=== PATIENT | male | born 1995 | race Caucasian/White ===

== ENCOUNTER 2018-01-06 11:47 | Emergency (ER) | payer OTHER ==
[~2018-01-06] VITALS: Ht 182.9 cm; Wt 78.0 kg
== END 2018-01-06 12:19 | disposition home or self-care (01) ==
LOC: ER 11:51
DX: L25.9 Unspecified contact dermatitis, unspecified cause (principal); Z88.1 Allergy status to other antibiotic agents
CPT/HCPCS: A4663

== ENCOUNTER 2018-01-15 15:48 | Emergency (ER) | payer OTHER ==
[~2018-01-15] VITALS: Ht 182.9 cm; Wt 77.1 kg
[2018-01-15] MEDS ORDERED: CEPH500C2 PO (16:00)
--- NOTE | 2018-01-15 16:25 | NUR ---
Patient discharged to home in stable conditon & steady gait. Written and verbal after care instructions given to patient. Patient verbalizes understanding of instructions.
== END 2018-01-15 16:25 | disposition home or self-care (01) ==
LOC: ER 15:49
DX: M54.5 Low back pain (principal); J45.909 Unspecified asthma, uncomplicated; Z88.1 Allergy status to other antibiotic agents
CPT/HCPCS: A4663

== ENCOUNTER 2019-01-26 21:01 | Emergency (ER) | payer OTHER ==
[~2019-01-26] VITALS: Ht 182.9 cm; Wt 77.1 kg
[~2019-01-26 21:01] MED LIST: CEPH500C2 PO
--- NOTE | 2019-01-26 21:40 | NUR ---
DR. MAYO AT BEDSIDE FOR MSE.
[2019-01-26] MEDS: HYDROCODONE/APAP 5-325MG TABLET PO ONE (21:46)
[2019-01-26] MEDS: DOCUSATE SODIUM 100 MG CAPSULE PO ONE (21:46)
--- NOTE | 2019-01-26 21:46 | NUR ---
Patient discharged to home in stable conditon. Written and verbal after care instructions given. Patient verbalizes understanding of instructions. PATIENT LEFT WITH STABLE GAIT.
[2019-01-26 21:47] VITALS: BP 141/73
[2019-01-26] MEDS ORDERED: DOCUSATE SODIUM 100 MG CAPSULE PO ONE (21:48)
[2019-01-26] MEDS ORDERED: HYDROCODONE/APAP 5-325MG TABLET ONE (21:48)
== END 2019-01-26 21:51 | disposition home or self-care (01) ==
LOC: ER 21:03
DX: K64.4 Residual hemorrhoidal skin tags (principal); J45.909 Unspecified asthma, uncomplicated; Z88.1 Allergy status to other antibiotic agents; Z79.899 Other long term (current) drug therapy
CPT/HCPCS: A4663

== ENCOUNTER 2020-01-20 21:12 | Emergency (ER) | payer OTHER ==
[~2020-01-20] VITALS: Ht 182.9 cm; Wt 77.1 kg
--- NOTE | 2020-01-20 21:20 | NUR ---
ADMITTED TO ER [facility] AMBULATORY C/O ABSCESS ON LEFT UNDER ARM SINCE LAST MONTH. DR MAYO WILL SEE & EVALUATED PT.
[2020-01-20] MEDS ORDERED: IBUP-23 PO (21:24)
[2020-01-20] MEDS ORDERED: EMTR1TAB6 PO (21:24)
[2020-01-20] MEDS ORDERED: ONDANSETRON ODT 4 MG TAB.RAPDIS SL ONE (21:45)
[2020-01-20] MEDS ORDERED: SODIUM BICARBONATE 4.2 % (NEUT) 5 ML VIAL TP ONE (21:45)
[2020-01-20] MEDS ORDERED: HYDROCODONE/APAP 10-325 MG TABLET PO ONE (21:45)
[2020-01-20] MEDS ORDERED: SULFAMETH/TRIMETH 800/160 MG TABLET PO ONE (21:45)
[2020-01-20] MEDS ORDERED: LIDOCAINE 1%-EPI 1:100,000 20 ML VIAL ONE ×2 (21:45→22:48)
[2020-01-20] MEDS: CEFTRIAXONE 1 G VIAL IM ONE ×2 (21:52→22:55)
[2020-01-20] MEDS: LIDOCAINE 1%-EPI 1:100,000 20 ML VIAL IJ ONE ×2 (21:52→22:55)
--- NOTE | 2020-01-20 21:55 | NUR ---
INCISION & DRAINAGE DONE @ BEDSIDE BY DR MAYO.
[2020-01-20] MEDS ORDERED: CEFTRIAXONE 1 G VIAL ONE ×2 (22:35→22:46)
[2020-01-20] MEDS ORDERED: SULFAMETH/TRIMETH 800/160 MG TABLET ONE (22:36)
[2020-01-20] MEDS ORDERED: ONDANSETRON ODT 4 MG TAB.RAPDIS ONE (22:37)
[2020-01-20] MEDS ORDERED: HYDROCODONE/APAP 10-325 MG TABLET ONE (22:37)
--- NOTE | 2020-01-20 23:55 | NUR ---
Patient discharged to home in stable condition under the care his mother. Written and verbal after care instructions given. Patient verbalizes understanding of instructions. Stressed follow up or return to ER for worsening s/s.
[2020-01-21 00:39] VITALS: BP 128/85
== END 2020-01-20 23:55 | disposition home or self-care (01) ==
LOC: ER 21:14
DX: L02.412 Cutaneous abscess of left axilla (principal); J45.909 Unspecified asthma, uncomplicated; L03.112 Cellulitis of left axilla
CPT/HCPCS: 10060; 96372; 99284; J0696; J3490 ×2; A4663; Q0162

== ENCOUNTER 2020-01-22 21:44 | Emergency (ER) | payer OTHER ==
[~2020-01-22] VITALS: Ht 182.9 cm; Wt 77.1 kg
[~2020-01-22 21:44] MED LIST changes: +EMTR1TAB6 PO; +IBUP-23 PO
--- NOTE | 2020-01-22 22:02 | NUR ---
at bedside for assessment
--- NOTE | 2020-01-22 22:28 | NUR ---
Left armit packing removed by stephanie LAIRD repfelix and dressed with four by fours and hospital tape, patient tolerated procedure well
--- NOTE | 2020-01-22 22:32 | NUR ---
Patient discharged to home in stable condition. Patient able to ambulate in steady manner, took all belongings, no signs of acute distress, instructed to follow up with PCP. Written and verbal after care instructions given. Patient verbalizes understanding of instructions. Stressed follow up or return to ER for worsening s/s.
[2020-01-22 22:36] VITALS: BP 133/61
== END 2020-01-22 22:35 | disposition home or self-care (01) ==
LOC: ER 21:47
DX: L02.412 Cutaneous abscess of left axilla (principal); J45.909 Unspecified asthma, uncomplicated
CPT/HCPCS: A4663